=== PATIENT | female | born 1995 | race American Indian/Alaskan Native ===

== ENCOUNTER 2022-06-06 14:56 | Emergency (ER) | payer MEDICAID ==
[~2022-06-06] VITALS: Ht 160 cm; Wt 60.0 kg
[2022-06-06 15:56] LABS: BASOPHILS % (AUTO) 0.7 % (0-1); EOSINOPHILS # (AUTO) 0.1 X10'3 (0-0.9); EOSINOPHILS % (AUTO) 1.6 % (0-6); HEMATOCRIT 38.8 % (35.0-45.0); HEMOGLOBIN 13.4 g/dl (12.0-16.0); LYMPHOCYTES # (AUTO) 1.1 X10'3 (1.1-4.8); LYMPHOCYTES % (AUTO) 15.5 % (21-51); MEAN CORPUSCULAR HEMOGLOBIN 36.8 PG (27.0-31.0); MEAN CORPUSCULAR HGB CONC 34.6 g/dL (33.0-36.5); MEAN CORPUSCULAR VOLUME 106.3 FL (78-98); MEAN PLATELET VOLUME 7.7 FL (7.4-10.4); MONOCYTES # (AUTO) 0.5 X10'3 (0-0.9); MONOCYTES % (AUTO) 7.3 % (2-12); NEUTROPHILS # (AUTO) 5.4 X10'3 (1.8-7.7); NEUTROPHILS % (AUTO) 74.9 % (42-75); PLATELET COUNT 148 X10'3 (140-440); RED BLOOD COUNT 3.65 X10'6 (4.20-5.60); RED CELL DISTRIBUTION WIDTH 16.4 % (11.5-14.5); WHITE BLOOD COUNT 7.3 X10'3 (4.5-11.0)
[2022-06-06 16:11] LABS: ALANINE AMINOTRANSFERASE 67 U/L (12-78); ALBUMIN 3.8 G/DL (3.4-5.0); ALKALINE PHOSPHATASE 121 IU/L (46-116); ANION GAP 10 (8-16); ASPARTATE AMINO TRANSFERASE 112 U/L (10-37); BILIRUBIN,TOTAL 1.4 MG/DL (0.1-1.0); BLOOD UREA NITROGEN 11 MG/DL (7-18); BUN/CREATININE RATIO 14.3 (6.6-38.0); CALCIUM 9.1 MG/DL (8.5-10.1); CHLORIDE 101 MMOL/L (99-107); CREATININE 0.77 MG/DL (0.40-0.90); GLUCOSE 115 MG/DL (70-104); LIPASE 422 U/L (73-393); POTASSIUM 3.6 MMOL/L (3.5-5.1); SODIUM 139 MMOL/L (135-145); TOTAL CARBON DIOXIDE 28.3 MMOL/L (24-32); TOTAL PROTEIN 7.6 G/DL (6.4-8.2); eGFR > 90 ML/MIN
[2022-06-06] MEDS ORDERED: thiamine 100mg/ml 2ml inj. IM ONE (21:25)
[2022-06-06 21:27] LABS: URINE HCG NEGATIVE (NEG)
[2022-06-06 21:28] LABS: CLARITY,URINE CLOUDY (Clear); COLOR,URINE YELLOW (Yellow); GLUCOSE, URINE NEGATIVE (Neg); KETONES,URINE 15 mg/dl (Neg); LEUKOCYTE ESTERASE ,URINE LARGE (Neg); NITRITES, URINE NEGATIVE (Neg); OCCULT BLOOD,URINE TRACE-INTACT (Neg); PROTEIN,URINE 30 mg/dl (Neg); UROBILINOGEN,URINE 0.2 E.U/dL (0.2-1.0)
[2022-06-06] MEDS ORDERED: ondansetron/PF 4mg/2ml inj IV ONE (21:30)
[2022-06-06 21:31] LABS: UA COLLECTION TYPE NON-SPECIFIED
[2022-06-06 21:34] LABS: SQUAMOUS EPITHELIAL CELL,UR MODERATE /LPF (FEW)
[2022-06-06 21:35] LABS: BACTERIA,URINE 4+ /HPF (Neg); MUCUS STRANDS MODERATE /LPF (Neg); WBC,URINE TNTC /HPF (0-4)
[2022-06-06] MEDS ORDERED: CEPH-585 PO (22:05)
[2022-06-06 23:20] VITALS: BP 136/96
== END 2022-06-06 23:21 | disposition home or self-care (01) ==
LOC: ER 14:57
DX: N39.0 Urinary tract infection, site not specified (principal); R10.13 Epigastric pain; R11.0 Nausea; Z79.2 Long term (current) use of antibiotics
CPT/HCPCS: 36415; 76700; 80053; 81001; 81025; 82607; 83690; 84484; 85025; 87077; 87088; 87186; 93005; 96372; 96374; 99285; J2405; J3411

== ENCOUNTER 2022-09-02 14:23 | Inpatient (IN) | payer MEDICAID ==
[~2022-09-02] VITALS: Ht 160 cm; Wt 59.1 kg
[~2022-09-02 14:23] MED LIST: CEPH-585 PO
[2022-09-02 14:49] LABS: BASOPHILS # (AUTO) 0.1 X10'3 (0-0.2); BASOPHILS % (AUTO) 0.5 % (0-1); EOSINOPHILS % (AUTO) 0 % (0-6); HEMATOCRIT 44.8 % (35.0-45.0); HEMOGLOBIN 15.1 g/dl (12.0-16.0); LYMPHOCYTES # (AUTO) 0.4 X10'3 (1.1-4.8); LYMPHOCYTES % (AUTO) 3.2 % (21-51); MEAN CORPUSCULAR HEMOGLOBIN 34.5 PG (27.0-31.0); MEAN CORPUSCULAR HGB CONC 33.7 g/dL (33.0-36.5); MEAN CORPUSCULAR VOLUME 102.5 FL (78-98); MEAN PLATELET VOLUME 6.9 FL (7.4-10.4); MONOCYTES # (AUTO) 0.6 X10'3 (0-0.9); MONOCYTES % (AUTO) 4.9 % (2-12); NEUTROPHILS # (AUTO) 12.1 X10'3 (1.8-7.7); NEUTROPHILS % (AUTO) 91.4 % (42-75); PLATELET COUNT 127 X10'3 (140-440); RED BLOOD COUNT 4.37 X10'6 (4.20-5.60); RED CELL DISTRIBUTION WIDTH 18.1 % (11.5-14.5); WHITE BLOOD COUNT 13.2 X10'3 (4.5-11.0)
[2022-09-02 15:11] LABS: ALANINE AMINOTRANSFERASE 117 U/L (12-78); ALBUMIN 4.1 G/DL (3.4-5.0); ALBUMIN/GLOBULIN RATIO 0.8 (1.1-1.5); ALKALINE PHOSPHATASE 179 IU/L (46-116); ANION GAP 24 (8-16); ASPARTATE AMINO TRANSFERASE 227 U/L (10-37); BILIRUBIN,TOTAL 1.3 MG/DL (0.1-1.0); BLOOD UREA NITROGEN 9 MG/DL (7-18); BUN/CREATININE RATIO 10.6 (6.6-38.0); CALCIUM 9.3 MG/DL (8.5-10.1); CHLORIDE 94 MMOL/L (99-107); CREATININE 0.85 MG/DL (0.40-0.90); GLUCOSE 80 MG/DL (70-104); MAGNESIUM 1.7 MG/DL (1.5-2.4); POTASSIUM 3.9 MMOL/L (3.5-5.1); SODIUM 136 MMOL/L (135-145); TOTAL CARBON DIOXIDE 18.4 MMOL/L (24-32); eGFR 81 ML/MIN
[2022-09-02] MEDS ORDERED: LORazepam 1 MG tablet PO ONE (15:35)
--- NOTE | 2022-09-02 18:57 | NUR ---
Dr. Robertson at bedside.
[2022-09-02] MEDS ORDERED: dextrose 5%-1/2 normal saline 1,000 ML IV ONE (19:05)
[2022-09-02] MEDS ORDERED: ondansetron/PF 4mg/2ml inj IV ONE (19:05)
[2022-09-02] MEDS ORDERED: diazepam inj 5 MG/ML inj. IV ONE (19:45)
[2022-09-02] MEDS ORDERED: potassium Cl 40MEQ/1/2NS 520ml 520 ML IV PRN (19:50)
[2022-09-02] MEDS ORDERED: ondansetron/PF 4mg/2ml inj IV PRN (19:50)
[2022-09-02] MEDS: normal saline 1000ml 1,000 ML IV SCH (19:50)
[2022-09-02] MEDS ORDERED: magnesium Cl slow-release 64mg tablet PO PRN (19:50)
[2022-09-02] MEDS ORDERED: acetaminophen 325mg tablet PO PRN (19:50)
[2022-09-02] MEDS ORDERED: magnesium 4gm in 100ml NS 100 ML IV PRN (19:50)
[2022-09-02] MEDS ORDERED: potassium Cl 20 mEq SR tablet PO PRN ×2 (19:50)
[2022-09-02] MEDS: K and/or MAG REPLACEMENT MC SCH (20:00)
[2022-09-02] MEDS: heparin, porcine 5000 units/ml vial SQ SCH (20:00)
[2022-09-02 20:31] LABS: HCG SERUM QL NEGATIVE
[2022-09-02 20:42] LABS: LIPASE 10488 U/L (73-393)
[2022-09-02] MEDS ORDERED: LAMO150T6 PO (20:55)
[2022-09-02] MEDS ORDERED: CLON-368 PO (20:55)
[2022-09-02] MEDS ORDERED: HYDR50TA65 PO (20:55)
[2022-09-02] MEDS ORDERED: ARIP5TAB60 PO (20:55)
[2022-09-02] MEDS: morphine 2 MG/ML inj. syringe IV PRN (22:14)
[2022-09-03 03:02] LABS: BASOPHILS % (AUTO) 0.2 % (0-1); EOSINOPHILS % (AUTO) 0 % (0-6); HEMATOCRIT 37.9 % (35.0-45.0); HEMOGLOBIN 12.6 g/dl (12.0-16.0); LYMPHOCYTES # (AUTO) 0.2 X10'3 (1.1-4.8); LYMPHOCYTES % (AUTO) 2.2 % (21-51); MEAN CORPUSCULAR HEMOGLOBIN 34.2 PG (27.0-31.0); MEAN CORPUSCULAR HGB CONC 33.2 g/dL (33.0-36.5); MEAN CORPUSCULAR VOLUME 103.1 FL (78-98); MEAN PLATELET VOLUME 7.3 FL (7.4-10.4); MONOCYTES # (AUTO) 0.6 X10'3 (0-0.9); MONOCYTES % (AUTO) 6.1 % (2-12); NEUTROPHILS # (AUTO) 9.4 X10'3 (1.8-7.7); NEUTROPHILS % (AUTO) 91.5 % (42-75); PLATELET COUNT 79 X10'3 (140-440); RED BLOOD COUNT 3.67 X10'6 (4.20-5.60); RED CELL DISTRIBUTION WIDTH 17.7 % (11.5-14.5); WHITE BLOOD COUNT 10.3 X10'3 (4.5-11.0)
[2022-09-03 03:14] LABS: ALANINE AMINOTRANSFERASE 70 U/L (12-78); ALBUMIN 2.9 G/DL (3.4-5.0); ALBUMIN/GLOBULIN RATIO 0.8 (1.1-1.5); ALKALINE PHOSPHATASE 122 IU/L (46-116); ANION GAP 12 (8-16); ASPARTATE AMINO TRANSFERASE 112 U/L (10-37); BILIRUBIN,TOTAL 1.2 MG/DL (0.1-1.0); BLOOD UREA NITROGEN 7 MG/DL (7-18); BUN/CREATININE RATIO 9.3 (6.6-38.0); CALCIUM 7.4 MG/DL (8.5-10.1); CHLORIDE 98 MMOL/L (99-107); CREATININE 0.75 MG/DL (0.40-0.90); GLUCOSE 391 MG/DL (70-104); MAGNESIUM 2.7 MG/DL (1.5-2.4); POTASSIUM 3.9 MMOL/L (3.5-5.1); SODIUM 132 MMOL/L (135-145); TOTAL PROTEIN 6.7 G/DL (6.4-8.2); eGFR > 90 ML/MIN
[2022-09-03] MEDS ORDERED: MESSAGE TO PHARMACY PO ONE (05:05)
[2022-09-03] MEDS ORDERED: insulin Lispro (HumaLOG) vial - multi-dose SQ SCH (05:05)
[2022-09-03] MEDS ORDERED: glucagon, human recombinant 1mg kit SUBCUT PRN (05:05)
[2022-09-03] MEDS ORDERED: dextrose 50%-water 50ml dispensing syringe IV PRN ×2 (05:05)
[2022-09-03] MEDS ORDERED: DEXTROSE 15 GM of carb/4 tabs (each vial/BOTTLE has 4 tablets) PO PRN ×2 (05:05)
[2022-09-03 06:15] LABS: CLARITY,URINE CLEAR (Clear)
[2022-09-03 06:17] LABS: UA COLLECTION TYPE CLN CATCH MIDSTREAM
[2022-09-03 06:18] LABS: COLOR,URINE ORANGE (Yellow)
[2022-09-03 06:19] LABS: RBC,URINE 0-2 /HPF (0-2); WBC,URINE 0-4 /HPF (0-4)
[2022-09-03 06:20] LABS: BACTERIA,URINE FEW /HPF (Neg); MUCUS STRANDS NONE SEEN /LPF (Neg); SQUAMOUS EPITHELIAL CELL,UR FEW /LPF (FEW)
[2022-09-03] MEDS: LORazepam 2 mg/ml vial IV PRN ×4 (06:35→16:04)
[2022-09-03] MEDS: normal saline 1000ml 1,000 ML IV SCH ×2 (06:35→16:06)
[2022-09-03] MEDS ORDERED: clonazePAM 0.5mg tablet PO SCH (08:00)
[2022-09-03] MEDS ORDERED: lamoTRIgine 25mg tablet PO SCH (08:00)
[2022-09-03] MEDS: K and/or MAG REPLACEMENT MC SCH (08:00)
[2022-09-03] MEDS ORDERED: aripiprazole 5mg tablet PO SCH (08:00)
[2022-09-03] MEDS: heparin, porcine 5000 units/ml vial SQ SCH (08:12)
[2022-09-03] MEDS: morphine 2 MG/ML inj. syringe IV PRN (08:25)
[2022-09-03] MEDS ORDERED: dextrose 5%-normal saline 1,000 ML IV SCH (08:45)
[2022-09-03 09:35] LABS: URINE AMPHETAMINE SCREEN NEGATIVE (Neg); URINE BARBITUATE SCREEN NEGATIVE (Neg); URINE BENZODIAZEPINES SCREEN NEGATIVE (Neg); URINE CANNABINOID SCREEN NEGATIVE (Neg); URINE COCAINE SCREEN NEGATIVE (Neg); URINE METHADONE SCREEN NEGATIVE (Neg); URINE OPIATE SCREEN POSITIVE (Neg); URINE PHENCYCLIDINE SCREEN NEGATIVE (Neg)
[2022-09-03 09:37] LABS: HEMOGLOBIN A1C 4.7 % (4.5-6.2)
[2022-09-03 10:58] LABS: CHOL/HDL RATIO 1.7 (0.00-4.99); CHOLESTEROL 230 MG/DL (0-200); HDL CHOLESTEROL 135 MG/DL (35-60); LDL CHOLESTEROL 65 MG/DL (50-100); TRIGLYCERIDES 79 MG/DL (20-135)
[2022-09-03 11:14] LABS: LIPASE 7972 U/L (73-393)
[2022-09-03 11:16] LABS: ETHANOL < 0.010 GM/DL (0.0-0.010)
--- NOTE | 2022-09-03 12:00 | NUR ---
dr frank at bedside.
--- NOTE | 2022-09-03 13:25 | NUR ---
Met with patient in regards to alcohol use and to see if patient was interested in resources for treatment options. Patient is interested in both in/out patient resources. I talked to patient about medication to help with cravings, gave [facility] information, discussed getting a sponsor, a list of different facilities and my card to call me with any questions.
[2022-09-03 15:22] VITALS: BP 118/79
--- NOTE | 2022-09-03 16:25 | NUR ---
ASSESSED THE PATIENT AT THIS TIME,PT AOX 4.
--- NOTE | 2022-09-03 16:27 | NUR ---
paged dr zac landon this time.
--- NOTE | 2022-09-03 16:29 | NUR ---
pt is very anxious taking iv tubing out ,tangling the monitor wire,trying to escape.
--- NOTE | 2022-09-03 16:49 | NUR ---
SPOKE TO DR DÍAZ INFORMED THAT PT IS AOX4 ,WANT TO LEAVE , PER SHE CAN LEAVE AMA , WE CAN'T KEEP ANYONE AGAINST THEIR WILL . PER PT CAN SIGN AMA FORM IF SHE WANTS TO LEAVE .ALSO LET THE ER DR KNOW THAT PT IS LEAVING.CALLED PT FATHER ABOUT THE SITUATION PER FATHER HE WILL TALK TO THE PT ,TRANSFERED THE CALL .
--- NOTE | 2022-09-03 17:05 | NUR ---
SPOKE TO DR AGUILAR INFORMED THAT PT WAS APPROPRIATE FOR THE DIRECTOR RELIGIOUS EDUCATION AOX4 BUT WHEN PT DAD WAS TALKING TO HER SHE STATED SHE IS BEING KIDNAPPED AND SHE IS WITH HER FAMILY ,WHEN ASKED WHERE THE FAMILY IS SHE STATED MY BROTHER WAS HERE LOOKING FOR ME .ASKED THE MD TO ASSESS THE PT BEFORE AMA .
--- NOTE | 2022-09-03 17:10 | NUR ---
DR AGUILAR AT BEDSIDE TALKING TO THE PT .
--- NOTE | 2022-09-03 17:18 | NUR ---
DR AGUILAR STATED HE IS GOING TO CONTACT DR DÍAZ AND COME UP WITH A PLAN.
--- NOTE | 2022-09-03 17:20 | NUR ---
DR AGUILAR TOLD THE SALES AND MARKETING AGENT THAT HE SPOKE TO DR DÍAZ AND OKAY TO GET AMA PAPERWORK SIGNED UNDER HIS NAME .
--- NOTE | 2022-09-03 17:26 | NUR ---
IV TAKEN OUT AND GOT AMA FORM SIGNED BY THE PT .DR AGUILAR EXPLAINED AND DISCUSSED THE RISK FACTOR WITH THE PT ,PT VERBALIZED UNDERSTANDING ,WALKED OUT OF ER WITH HER BELONGING .
[2022-09-03] MEDS ORDERED: hydrOXYzine 25 MG tablet PO SCH (21:00)
[2022-09-04] MEDS ORDERED: LORazepam 1 MG tablet PO PRN (19:55)
[2022-09-04] MEDS ORDERED: LORazepam 2 mg/ml vial IV PRN (19:55)
[2022-09-06] MEDS ORDERED: LORazepam 1 MG tablet PO PRN (19:55)
[2022-09-06] MEDS ORDERED: LORazepam 2 mg/ml vial IV PRN (19:55)
[2022-09-07] MEDS ORDERED: thiamine 100mg tablet PO SCH (08:00)
== END 2022-09-03 17:31 | disposition left against medical advice (07) | DRG 282 ==
LOC: ER 14:23 → ED HOLD 19:48
PROVIDERS: ADMIT Internal Medicine; ATTEND Family Medicine
DX: K85.90 Acute pancreatitis without necrosis or infection, unspecified (principal); K70.10 Alcoholic hepatitis without ascites; F10.230 Alcohol dependence with withdrawal, uncomplicated; Z53.29 Procedure and treatment not carried out because of patient's decision for other reasons; F41.9 Anxiety disorder, unspecified; Z88.2 Allergy status to sulfonamides; Z79.899 Other long term (current) drug therapy
CPT/HCPCS: 36415; 71045; 80053; 80061; 80305; 80320; 81001; 82948; 83036; 83605; 83690; 83735; 83880; 84145; 84443; 84484; 84703; 85025; 93005; 99285; G0378; J1644; J1815; J2060; J2270; J2405; J3360; J7030; J7042

== ENCOUNTER 2023-05-14 21:45 | Emergency (ER) | payer MEDICAID ==
[~2023-05-14] VITALS: Ht 160 cm; Wt 65.6 kg
[~2023-05-14 21:45] MED LIST changes: +ARIP5TAB60 PO; -CEPH-585 PO; +CLON-368 PO; +HYDR50TA65 PO; +LAMO150T6 PO
[2023-05-14 21:56] VITALS: BP 108/80; PULSE 102; RESP 16; TEMP 97.8; O2SAT 98
== END 2023-05-15 02:09 | disposition left against medical advice (07) ==
LOC: ER 21:45
DX: R41.82 Altered mental status, unspecified (principal); Z53.21 Procedure and treatment not carried out due to patient leaving prior to being seen by health care provider
CPT/HCPCS: 99281